=== PATIENT | male | born 1980 | race Caucasian/White ===

== ENCOUNTER 2018-01-09 16:41 | Emergency (ER) | payer OTHER ==
[~2018-01-09] VITALS: Ht 182.9 cm; Wt 120.2 kg
[~2018-01-09 16:41] MED LIST: ADVIL LIQUI-GE200 MG; CEFADROXIL500 MG PO; ORASEP SPRAY30 ML MM; REDNESS RELIEF15 M1 OP
== END 2018-01-09 19:45 | disposition home or self-care (01) ==
LOC: ER 16:41
DX: I10 Essential (primary) hypertension (principal); R51 Headache